=== PATIENT | female | born 1950 | race Caucasian/White ===

== ENCOUNTER 2019-02-15 08:13 | Emergency (ER) | payer MEDICARE, OTHER ==
[~2019-02-15] VITALS: Ht 158.5 cm; Wt 65.8 kg
[~2019-02-15 08:13] MED LIST: ASPI-482 PO; CARV3.1210 PO; CLOB15CR TP; DIAZEPAM10 MG PO; GABA300C18 PO; LEVO50TA5 PO; LISI-334 PO; OXAZ15CA3 PO; TIZA4TAB PO
[2019-02-15 08:28] VITALS: BP 140/83
[2019-02-15] MEDS ORDERED: FAMOTIDINE 20 MG/2 ML VIAL IVP ONE (09:15)
[2019-02-15 09:20] LABS: BASO % 0 % (0-3); EOS % 1 % (0-3); HEMATOCRIT 38.8 % (36.0-47.0); HEMOGLOBIN 13.6 g/dL (12.0-15.5); LYMPH # 0.7 x10^3/uL (1.0-4.8); LYMPH % 18 % (24-48); MEAN CORPUSCULAR HEMOGLOBIN 33 pg (25-35); MEAN CORPUSCULAR HGB CONC 35 g/dL (31-37); MEAN CORPUSCULAR VOLUME 94 fL (79-100); MONO # 0.3 x10^3/uL (0.0-1.1); MONO % 8 % (0-9); NEUT # 2.8 x10^3uL (1.8-7.7); NEUT % 73 % (31-73); PLATELET COUNT 223 x10^3/uL (140-400); RED BLOOD COUNT 4.11 x10^6/uL (3.50-5.40); RED CELL DISTRIBUTION WIDTH 13.5 % (11.5-14.5); WHITE BLOOD COUNT 3.8 x10^3/uL (4.0-11.0)
--- NOTE | 2019-02-15 09:21 | PHYS DOC ---
Past Medical History Past Medical History: Anxiety, GERD, Hypertension, Hypothyroid Additional Past Medical Histor: prolasped bladder, pelvic floor dysfunction Past Surgical History: Hysterectomy, Other Additional Past Surgical Histo: thumb surgery Alcohol Use: None Drug Use: None Adult General Chief Complaint Chief Complaint: HEADACHE HPI HPI Patient is a 68 year old female who presents with complaining of headache. Patient complaining of left temporal headache for the last 4 days as a constant aching pain and rated her pain 1-2/10. Patient also complaining of substernal indigestion feeling for the last 4 days as an intermittent pain that getting better with [id number] antacid medication. Patient states she was on long time diazepam . Patient states she stopped diazepam 1 month ago and had withdrawal symptom. Patient states her primary care physician tapering her medication but she doesn't follow the direction correctly and didn't take any medication for the last 1 week and thinks maybe she had withdrawal symptom again. Patient states she had 4 mg of diazepam yesterday. Patient denies fever and chills, focal neuro deficit, nausea or vomiting, blurred vision, neck pain. Review of Systems Review of Systems Constitutional: Denies fever or chills [] Eyes: Denies change in visual acuity, redness, or eye pain [] HENT: Denies nasal congestion or sore throat [] Respiratory: Denies cough or shortness of breath [] Cardiovascular: No additional information not addressed in HPI [] GI: Denies abdominal pain, nausea, vomiting, bloody stools or diarrhea [] : Denies dysuria or hematuria [] Musculoskeletal: Denies back pain or joint pain [] Integument: Denies rash or skin lesions [] Neurologic: Denies headache, focal weakness or sensory changes [] Endocrine: Denies polyuria or polydipsia [] All other systems were reviewed and found to be within normal limits, except as documented in this note. Current Medications Current Medications Current Medications Medications (Trade) Dose Ordered Sig/Corbin Start Time Stop Time Status Last Admin Dose Admin Famotidine (Pepcid Vial) 20 mg 1X ONCE 02/15/19 09:15 02/15/19 09:17 DC 02/15/19 09:23 20 MG Ketorolac Tromethamine (Toradol 30mg Vial) 30 mg 1X ONCE 02/15/19 10:00 02/15/19 10:01 DC Allergies Allergies Allergies Coded Allergies Type Severity Reaction Last Updated Verified hydrochlorothiazide Allergy Intermediate 06/23/14 No Physical Exam Physical Exam Constitutional: Well nourished, mild distress, non-toxic appearance. [] HENT: Normocephalic, atraumatic, bilateral external ears normal, oropharynx elva st, no oral exudates, nose normal. [] Eyes: PERRLA, EOMI, conjunctiva normal, no discharge. [] Neck: Normal range of motion, no tenderness, supple, no stridor, no meningeal sign. [] Cardiovascular:Heart rate regular rhythm, no murmur [] Lungs & Thorax: Bilateral breath sounds clear to auscultation [] Abdomen: Bowel sounds normal, soft, no tenderness, no masses, no pulsatile masses. [] Skin: Warm, dry, no erythema, no rash. [] Back: No tenderness, no CVA tenderness. [] Extremities: No tenderness, no cyanosis, no clubbing, ROM intact, no edema. [] Neurologic: Alert and oriented X 3, normal motor function, normal sensory function, no focal deficits noted. [] Psychologic: Affect anxious, judgement normal, mood normal. [] Current Patient Data Vital Signs Vital Signs Date Time Temp Pulse Resp B/P (MAP) Pulse Ox O2 Delivery O2 Flow Rate FiO2 02/15/19 08:28 98.3 85 16 140/83 (102) 100 Room Air 98.3 Lab Values Laboratory Tests Test 02/15/19 08:50 White Blood Count 3.8 x10^3/uL (4.0-11.0) L Red Blood Count 4.11 x10^6/uL (3.50-5.40) Hemoglobin 13.6 g/dL (12.0-15.5) Hematocrit 38.8 % (36.0-47.0) Mean Corpuscular Volume 94 fL (79-100) Mean Corpuscular Hemoglobin 33 pg (25-35) Mean Corpuscular Hemoglobin Concent 35 g/dL (31-37) Red Cell Distribution Width 13.5 % (11.5-14.5) Platelet Count 223 x10^3/uL (140-400) Neutrophils (%) (Auto) 73 % (31-73) Lymphocytes (%) (Auto) 18 % (24-48) L Monocytes (%) (Auto) 8 % (0-9) Eosinophils (%) (Auto) 1 % (0-3) Basophils (%) (Auto) 0 % (0-3) Neutrophils # (Auto) 2.8 x10^3uL (1.8-7.7) Lymphocytes # (Auto) 0.7 x10^3/uL (1.0-4.8) L Monocytes # (Auto) 0.3 x10^3/uL (0.0-1.1) Eosinophils # (Auto) 0.0 x10^3/uL (0.0-0.7) Basophils # (Auto) 0.0 x10^3/uL (0.0-0.2) Sodium Level 136 mmol/L (136-145) Potassium Level 4.2 mmol/L (3.5-5.1) Chloride Level 101 mmol/L (98-107) Carbon Dioxide Level 26 mmol/L (21-32) Anion Gap 9 (6-14) Blood Urea Nitrogen 10 mg/dL (7-20) Creatinine 0.7 mg/dL (0.6-1.0) Estimated GFR (Cockcroft-Gault) 82.7 BUN/Creatinine Ratio 14 (6-20) Glucose Level 114 mg/dL (70-99) H Calcium Level 9.2 mg/dL (8.5-10.1) Total Bilirubin 0.6 mg/dL (0.2-1.0) Aspartate Amino Transferase (AST) 42 U/L (15-37) H Alanine Aminotransferase (ALT) 35 U/L (14-59) Alkaline Phosphatase 51 U/L (46-116) Creatine Kinase 892 U/L (26-192) H Troponin I Quantitative < 0.017 ng/mL (0.000-0.055) Total Protein 6.4 g/dL (6.4-8.2) Albumin 3.6 g/dL (3.4-5.0) Albumin/Globulin Ratio 1.3 (1.0-1.7) Laboratory Tests 02/15/19 08:50 Laboratory Tests 02/15/19 08:50 EKG EKG EKG interpreted by me. EKG at 0848 showed normal sinus rhythm at rate of 64, normal [place] and QT intervals, no acute ST-T wave abnormalities. Radiology/Procedures Radiology/Procedures [][facility] [address] [place] [address] IMAGING REPORT Signed PATIENT: BRANDI BANGURA ACCOUNT: [id number] : 1950 LOCATION: ER AGE: 68 SEX: F EXAM STATUS: REG ER ORD. PHYSICIAN: RENZO FAULKNER MD REASON: Dizziness and headache x 4 days PROCEDURE: CT HEAD WO CONTRAST CT HEAD WO CONTRAST History: Dizziness and headache for 4 days Comparison: February 22, 2012 Technique: Noncontrast CT imaging was performed of the head. Exposure: One or more of the following individualized dose reduction techniques were utilized for this examination: 1. Automated exposure control 2. Adjustment of the mA and/or kV according to patient size 3. Use of iterative reconstruction technique. Findings: Ventricular size is proportionate to the sulcal spaces. There is mild generalized supratentorial involutional change. There is ill-defined low-density greatest of the bilateral parietal white matter at least in part present previously. There is no new intra-axial mass effect, midline shift, extra axial fluid collection. No convincing acute intracranial hemorrhage is identified. Visualized paranasal sinuses and mastoid air cells are aerated. There is right jossie bullosa. Impression: 1. No acute intracranial abnormality is identified by CT. There is mild supratentorial involutional change. Ill-defined low-density of the supratentorial parenchyma greatest of the parietal lobes is nonspecific, most commonly due to chronic microvascular ischemic disease in a patient this age. Electronically signed by: Shadi Hoang MD (02/15/2019 9:31 AM) [facility] DICTATED and SIGNED BY: SHADI HOANG MD DATE: 02/15/19 0931 Course & Med Decision Making Course & Med Decision Making Pertinent Labs and Imaging studies reviewed. (See chart for details) Evaluation of patient in ER showed 68-year-old female patient with complaining of mild headache and not feeling right after stopping diazepam suddenly. Patient had unremarkable exam and EKG. Labs showed mild elevation of CPK. CT head was u nremarkable. Patient treated with Pepcid and Toradol and felt better. Patient was advised to continue ibuprofen. Plan to give prescription for Zantac. Patient was advised to take diazepam as well advised and increase fluid intake. I've spoken with the patient and/or caregivers. I've explained the patient's condition, diagnosis and treatment plan based on information available to me at this time. I've answered the patient's and/or caregivers questions and addressed any concerns. The patient and/or caregivers have a good understanding the patient's diagnosis, condition and treatment plan as can be expected at this point. Vital signs have been stabilized. The patient's condition is stable for discharge from the emergency department. The patient will pursue further outpatient evaluation with her primary care provider or other designated consulting physician as outlined in the discharge instructions. Patient and/or caregivers are agreeable to this plan of care and follow-up instructions have been explained in detail. The patient and/or caregivers have received these instructions in written format and expressed understanding of these discharge instructions. The patient and her caregivers are aware that if any significant change in condition or worsening of symptoms should prompt him to immediately return to this of the closest emergency department. If an emergent department is not readily available I would encourage him to call 911. Dragon Disclaimer Dragon Disclaimer This electronic medical record was generated, in whole or in part, using a voice recognition dictation system. Departure Departure Impression: Primary Impression: Headache Additional Impressions: Withdrawal from diazepam GERD (gastroesophageal reflux disease) Disposition: 01 HOME, SELF-CARE (at 1008) Condition: IMPROVED Referrals: MANUEL LEONARD MD (PCP) Patient Instructions: Benzodiazepine Withdrawal, Diet for Gastroesophageal Reflux Disease, Adult Additional Instructions: Drink plenty of liquids Follow-up with your primary care physician in 3-5 days Return to ER if not getting better Take your diazepam as advised Scripts Ranitidine Hcl (ZANTAC) 150 Mg Tablet 1 TAB PO BID, #14 TAB Prov: RENZO FAULKNER MD 02/15/19 Problem Qualifiers Primary Impression: Headache Headache type: unspecified Headache chronicity pattern: unspecified pattern Intractability: not intractable Qualified Codes: R51 - Headache Additional Impressions: Withdrawal from diazepam Complication of substance-induced condition: uncomplicated Qualified Codes: F13.230 - Sedative, hypnotic or anxiolytic dependence with withdrawal, uncomplicated GERD (gastroesophageal reflux disease) Esophagitis presence: esophagitis presence not specified Qualified Codes: K21.9 - Gastro-esophageal reflux disease without esophagitis RENZO FAULKNER MD February 15, 2019 09:21
--- NOTE | 2019-02-15 09:33 | RAD ---
CT HEAD WO CONTRAST History: Dizziness and headache for 4 days Comparison: February 22, 2012 Technique: Noncontrast CT imaging was performed of the head. Exposure: One or more of the following individualized dose reduction techniques were utilized for this examination: 1. Automated exposure control 2. Adjustment of the mA and/or kV according to patient size 3. Use of iterative reconstruction technique. Findings: Ventricular size is proportionate to the sulcal spaces. There is mild generalized supratentorial involutional change. There is ill-defined low-density greatest of the bilateral parietal white matter at least in part present previously. There is no new intra-axial mass effect, midline shift, extra axial fluid collection. No convincing acute intracranial hemorrhage is identified. Visualized paranasal sinuses and mastoid air cells are aerated. There is right jossie bullosa. Impression: 1. No acute intracranial abnormality is identified by CT. There is mild supratentorial involutional change. Ill-defined low-density of the supratentorial parenchyma greatest of the parietal lobes is nonspecific, most commonly due to chronic microvascular ischemic disease in a patient this age. Electronically signed by: Zachery Hoang MD (02/15/2019 9:31 AM) [facility]
[2019-02-15 09:34] LABS: CALCIUM 9.2 mg/dL (8.5-10.1); CREATININE 0.7 mg/dL (0.6-1.0); GFR 82.7; POTASSIUM 4.2 mmol/L (3.5-5.1)
[2019-02-15 09:40] LABS: ALBUMIN 3.6 g/dL (3.4-5.0); ALBUMIN/GLOBULIN RATIO 1.3 (1.0-1.7); TOTAL BILIRUBIN 0.6 mg/dL (0.2-1.0); TOTAL PROTEIN 6.4 g/dL (6.4-8.2)
[2019-02-15] MEDS ORDERED: KETOROLAC 30 MG/ML VIAL. IV ONE (10:00)
[2019-02-15] MEDS ORDERED: RANI-376 PO (10:12)
--- NOTE | 2019-02-15 11:29 | EKG ---
[facility] [address] [place] [address] Test Date: 2019-02-15 Test Time: 08:48:18 Pat Name: BRANDI BANGURA Department: Room: Gender: F Geology Technician: : 1950 Requested By: RENZO FAULKNER Order Number: [id number] Reading MD: Measurements Intervals Ranger Rate: 63 P: 32 [place]: 210 QRS: 24 QRSD: 74 T: 33 QT: 388 QTc: 400 Interpretive Statements SINUS RHYTHM NORMAL ECG No previous ECG available for comparison
== END 2019-02-15 10:40 | disposition home or self-care (01) ==
LOC: ER 08:13
DX: R51 Headache (principal); F13.239 Sedative, hypnotic or anxiolytic dependence with withdrawal, unspecified; K21.9 Gastro-esophageal reflux disease without esophagitis; I10 Essential (primary) hypertension; E03.9 Hypothyroidism, unspecified; Z88.8 Allergy status to other drugs, medicaments and biological substances
CPT/HCPCS: 36415; 70450; 80053; 82550; 84484; 85025; 93005; 96374; 96375; 99285; J1885; J3490

== ENCOUNTER → 2020-12-29 | Outpatient (CLI) | payer MEDICARE ==
[2020-12-18 21:10] VITALS: BP 166/84
[~2020-12-29] MED LIST changes: +BUTA1TAB23 PO; -LISI-334 PO; +LISI20TA18 PO; +RANI-376 PO; -TIZA4TAB PO; +TIZA4TAB2 PO
--- NOTE | 2020-12-30 08:39 | KCIC ---
CT THORAX WO INDICATION: Lung nodule RUL on recent Xray. Recent xray at [facility]. Hx. Schulzid in June 2020. COMPARISON STUDY: Radiograph 12/18/2020. TECHNIQUE: Unenhanced axial images were obtained through the lungs and upper abdomen. Coronal and sa gittal multiplanar reconstructions were also obtained. PQRS compliance statement: One or more of the following individualized dose reduction techniques were utilized for this examinat ion: 1. Automated exposure control 2. Adjustment of the mA and/or kV according to patient size 3. Use of iterative reconstruction technique FINDINGS: Lungs and Airways: No pulmonary mass or consolidation. Calcified pulmonary granulomas. Bibasilar depe ndent and subsegmental atelectasis. Normal central airways. Pleura: The pleural spaces are normal. Heart and Mediastinum: The visualized thyroid gland is normal in size and attenuation. No axillary or supraclavicular lymphadenopathy. No mediastinal, hilar or retrocrural lymphadenopathy. Calcified hil ar lymph nodes consistent with remote granulomatous disease. Normal cardiac size. No pericardial effu svetlana. Coronary artery atherosclerotic disease. Atherosclerosis of the thoracic aorta. Abdomen: Left renal nonobstructive 2 mm calculus. Bones and Soft Tissues: The visualized skeletal structures and soft tissues of the chest wall are wit hin normal limits. IMPRESSION: No pulmonary mass or consolidation. No thoracic lymphadenopathy. Nodular opacity on the prior radiograph was likely artifactual due to superimposed structures, possib ly prominent first rib costochondral calcification. Nonobstructive left renal 2 mm calculus. Electronically signed by: Zachery Garcia MD (12/30/2020 8:36 AM) [id number]
== END ==
LOC: KCIC CT 13:20
PROVIDERS: ATTEND Family Medicine
DX: J98.11 Atelectasis (principal); J84.10 Pulmonary fibrosis, unspecified; N20.0 Calculus of kidney; I70.0 Atherosclerosis of aorta
CPT/HCPCS: 71250

== ENCOUNTER → 2021-01-24 | Outpatient (CLI) | payer MEDICARE ==
[2020-12-18 21:10] VITALS: BP 166/84
--- NOTE | 2021-01-24 16:22 | RAD ---
MR#: [id number] Date of Study: 01/24/2021 Ordering Physician: MARY JO JEAN BAPTISTE, Referring Physician: MARY JO JEAN BAPTISTE, Tech: Maryuri Mcfadden, RDMS, RVT, RTR; Marleen Yanez APPROVED REPORT Patient Location: OUT-PATIENT Indications Uncontrolled HTN Renal Artery Doppler Right Renal Artery Left Renal Arter y Proximal 161.0/39.0 cm/secProximal 92.0/27.0 cm/sec Mid 84.0/26.0 cm/secMid 51.0/15.0 cm/sec Distal 104.0/27.0 cm/secDistal 79.0/29.0 cm/sec Renal/Aorta Ratio 1.67Renal/Aorta Ratio 0.95 Prox. Resistive Index 0.76Prox. Resistive Index 0.71 Mid Resistive Index 0.69Mid Resistive Index 0.71 Distal Resistive Index 0.74Distal Resistive Index 0.63 Rt. Segmental A. 25.0/9.0 cm/secLt. Segmental A. 19.0/9.0 cm/sec Renal Measurements RightLeft Kidney Rabxsi15.5 cm cmKidney Kurhtk18.4 cm cm Right Additional FindingsLeft Additional Findings Aortic Doppler VelocityWaveform Mid. Aorta 96.0 cm/sec Findings Limited grayscale images of the bilateral kidneys are grossly unremarkable. Normal proximal, mid and distal renal artery velocities are noted. Normal renal to aortic ratios. Normal aortic velocities noted. B no significant renal artery stenosis identified. Critical Notification Critical Value: No <Conclusion> 1. No significant renal artery stenosis noted. Signed by : Matthew Boyer, Electronically Approved : 01/24/2021 16:21:49
--- NOTE | 2021-01-24 17:27 | CARD ---
MR#: [id number] Date of Study: 01/24/2021 Ordering Physician: MARY JO BARBOSA, Referring Physician: MARY JO BARBOSA, Tech: Maryuri Villar, [facility] [place] APPROVED REPORT EXAM: Two-dimensional and M-mode echocardiogram with Doppler and color Doppler. Other Information Quality : GoodHR: 63bpm INDICATION Dyspnea RISK FACTORS Hypertension 2D DIMENSIONS RVDd3.6 (2.9-3.5cm)Left Atrium(2D)2.7 (1.6-4.0cm) IVSd0.9 (0.7-1.1cm)Aortic Root(2D)3.3 (2.0-3.7cm) LVDd5.4 (3.9-5.9cm)LVOT Diameter1.9 (1.8-2.4cm) PWd0.8 (0.7-1.1cm)LVDs2.6 (2.5-4.0cm) FS (%) 52.2 %SV117.2 ml LVEF(%)56.9 (>50%) Aortic Valve AoV Peak Dilan.121.8cm/sAoV VTI21.9cm AO Peak GR.5.9mmHgLVOT Peak Dilan.110.0cm/s LVOT VTI 23.42cmAO Mean GR.3mmHg SPARKLE (VMAX)2.91ch2MKA (VTI)3.00cm2 Mitral Valve MV E Brhnasma41.8cm/sMV DECEL [id number] MV A Ufugqcoh97.3cm/sMV [id number] E/A Ratio0.9MVA (PHT)3.33cm2 TDI E/Lateral E'8.1E/Medial E'8.9 Pulmonary Valve PV Peak Kmfthyfl38.7cm/sPV Peak Grad.3mmHg Tricuspid Valve TR P. [id number]/sRAP [id number] TR Peak Gr.38klFfDNMX01uaJu Pulmonary Vein S1 Psizlfkf08.2cm/sD2 Vitkakio32.1cm/s PVa [id number] LEFT VENTRICLE The Left Ventricle is borderline dilated. There is normal left ventricular wall thickness. The left v entricular systolic function is normal and the ejection fraction is within normal range. The Ejection Fraction is 50-55%. There is normal LV segmental wall motion. Transmitral Doppler flow pattern is Gr gm I-abnormal relaxation pattern. RIGHT VENTRICLE The right ventricle is normal size. There is normal right ventricular wall thickness. The right ventr icular systolic function is normal. ATRIA The left atrium size is normal. The right atrium size is normal. The interatrial septum is intact wit h no evidence for an atrial septal defect or patent foramen ovale as noted on 2-D or Doppler imaging. AORTIC VALVE The aortic valve is normal in structure and function. Doppler and Color Flow revealed no significant aortic regurgitation. There is no significant aortic valvular stenosis. Calculated aortic valve area is 3.13 cm2 with maximum pressure gradient of 7 mmHg and mean pressure gradient of 3 mmHg. MITRAL VALVE The mitral valve is normal in structure and function. There is no evidence of mitral valve prolapse. There is no mitral valve stenosis. Doppler and Color-flow revealed trace mitral regurgitation. TRICUSPID VALVE The tricuspid valve is normal in structure and function. Doppler and Color Flow revealed trace tricus pid regurgitation with an estimated PAP of 30 mmHg. There is no tricuspid valve stenosis. PULMONIC VALVE The pulmonic valve is not well visualized. Doppler and Color Flow revealed trace pulmonic valvular re gurgitation. GREAT VESSELS The aortic root is normal in size. The IVC is normal in size and collapses >50% with inspiration. PERICARDIAL EFFUSION There is no evidence of significant pericardial effusion. Critical Notification Critical Value: No <Conclusion> The Left Ventricle is borderline dilated. The left ventricular systolic function is normal and the ejection fraction is within normal range. The Ejection Fraction is 50-55%. There is normal LV segmental wall motion. Doppler and Color Flow revealed no significant aortic regurgitation. There is no significant aortic valvular stenosis. Doppler and Color-flow revealed trace mitral regurgitation. Doppler and Color Flow revealed trace tricuspid regurgitation with an estimated PAP of 30 mmHg. Signed by : Mary Jo Barbosa MD Electronically Approved : 01/24/2021 17:26:39
== END ==
LOC: ECHO 08:32
PROVIDERS: ATTEND Internal Medicine Cardiovascular Disease
DX: I10 Essential (primary) hypertension (principal)
CPT/HCPCS: 76770; 93306

== ENCOUNTER 2021-04-13 08:27 | Emergency (ER) | payer MEDICARE ==
[~2021-04-13] VITALS: Ht 170.2 cm; Wt 69.6 kg
--- NOTE | 2021-04-13 08:55 | PHYS DOC ---
Past Medical History Past Medical History: Anxiety, Hypertension, Hypothyroid Additional Past Medical Histor: COVID 07/12 Past Surgical History: Other Additional Past Surgical Histo: RIGHT HIP PLACEMENT 10/11/20 Smoking Status: Never Smoker Alcohol Use: None Drug Use: None General Adult EDM: Chief Complaint: HEADACHE HPI: HPI: 71-year-old presents with a headache. She describes her headache as not sudden in onset. It has been present for multiple weeks. She does not have a history of headaches the only other headache she had was when she had Covid but she recently was tested for Covid which was negative. The pain is nonradiating. She denies nuchal rigidity. She denies any facial drooping numbness weakness or tingling of her arms. Review of systems negative for chest pain shortness of breath vomiting fevers chills. Positive for a sour taste in her mouth in the mornings. All other review of systems negative. Heart Score: C/O Chest Pain: No Risk Factors: Risk Factors: DM, Current or recent (<one month) smoker, HTN, HLP, family history of CAD, obesity. Risk Scores: Score 0 - 3: 2.5% MACE over next 6 weeks - Discharge Home Score 4 - 6: 20.3% MACE over next 6 weeks - Admit for Clinical Observation Score 7 - 10: 72.7% MACE over next 6 weeks - Early Invasive Strategies Allergies: Allergies: Allergies Coded Allergies Type Severity Reaction Last Updated Verified hydrochlorothiazide Allergy Intermediate 06/23/14 No Physical Exam: PE: Constitutional: Well developed, well nourished, no acute distress, non-toxic appearance. [] HENT: Normocephalic, atraumatic, bilateral external ears normal, oropharynx moist, no oral exudates, nose normal. [] Eyes: PERRLA, EOMI, conjunctiva normal, no discharge. [] Neck: Normal range of motion, no tenderness, supple, no stridor. [] Cardiovascular:Heart rate regular rhythm, no murmur [] Lungs & Thorax: Bilateral breath sounds clear to auscultation [] Abdomen: Bowel sounds normal, soft, no tenderness, no masses, no pulsatile masses. [] Skin: Warm, dry, no erythema, no rash. [] Back: No tenderness, no CVA tenderness. [] Extremities: No tenderness, no cyanosis, no clubbing, ROM intact, no edema. [] Neurologic: Mental status: Awake oriented and alert x3 Cranial nerves: Extraocular movements intact, eyebrows courtney bilaterally, smile symmetric, uvula elevation nl, shoulder shrug intact bilaterally, tongue protrusion normal Clear speech. Normal [id number]. Sensation: equal and normal in all extremities Strength: 5/5 in upper and lower extremities bilaterally Psychologic: Affect normal, judgement normal, mood normal. [] EKG: EKG: [] Radiology/Procedures: Radiology/Procedures: [] Course & Med Decision Making: Course & Med Decision Making Pertinent Labs and Imaging studies reviewed. (See chart for details) [] Dragon Disclaimer: Dragon Disclaimer: This electronic medical record was generated, in whole or in part, using a voice recognition dictation system. Departure Departure Impression: Primary Impression: Headache Disposition: HOME / SELF CARE / HOMELESS Condition: STABLE Referrals: MANUEL LEONARD MD (PCP) JEANNETTE JAY MD NEUROLOGY Patient Instructions: General Headache Without Cause Additional Instructions: EMERGENCY DEPARTMENT GENERAL DISCHARGE INSTRUCTIONS Follow-up with your primary physician in 1 to 2 days. And follow-up with neurology in the next 5 to 7 days. Return to the emergency department if you have any new or concerning findings. Thank you for coming to [facility] Emergency Department (ED) today and trusting us with you care. We trust that you had a positive experienc e in our Emergency Department. If you wish to speak to the department management, you may call the Director at [phone]. Follow up is important in emergency/acute care visits. This condition should be evaluated by your primary care physician and any necessary consulting services for continued management within a few days (1-2) after discharge. Follow-up with neurology within the next 5 to 7 days. Return to the emergency department if you have any new or concerning symptoms including but not limited to fever, chills, nausea, vomiting, intractable pain, any new rashes, chest pain, shortness of breath, uncontrolled bleeding, difficulty breathing, and/or vision loss. 1. Do you have a private Doctor? If you do not have a private doctor, please ask for a resource list of physicians or clinics that may be able to assist you with follow up care. 2. If a lab test or culture has been done and does not come back immediately, your results will be reviewed and you will be notified if you need a change in treatment. 3. Your care today has been supervised by a physician who is specially trained in emergency care. Many problems require more than one evaluation for a complete diagnosis and treatment. We recommend that you schedule your follow up appointment as recommended to ensure complete treatment of you illness or injury. If you are unable to obtain follow up care and continue to have a problem, or if your condition worsens, we recommend that you return to the ED. 4. We are not able to safely determine your condition over the phone nor are we able to give sound medical advice over the phone. For these safety reasons, if you call for medical advice we will ask you to come to the ED for further evaluation. IF YOUR SYMPTOMS WORSEN OR NEW SYMPTOMS DEVELOP, OR YOU HAVE CONCERNS ABOUT YOUR CONDITION; OR IF YOUR CONDITION WORSENS WHILE YOU ARE WAITING FOR YOUR FOLLOW UP APPOINTMENT; EITHER CONTACT YOUR PRIMARY CARE DOCTOR, THE PHYSICIAN WHOSE NAME AND NUMBER YOU WERE GIVEN, OR RETURN TO THE ED IMMEDIATELY. GABRIELLE CHASE MD Apr 13, 2021 08:55
[2021-04-13] MEDS ORDERED: ACETAMINOPHEN 325 MG TABLET. PO ONE (09:00)
--- NOTE | 2021-04-13 09:18 | RAD ---
PQRS Compliance Statement: One or more of the following individualized dose reduction techniques were utilized for this examinat ion: 1. Automated exposure control 2. Adjustment of the mA and/or kV according to patient size 3. Use of iterative reconstruction technique CT head without contrast 04/13/2021 8:59 AM INDICATION: Headache COMPARISON: 02/15/2019 CT head TECHNIQUE: Multiple axial CT images of the head were obtained from skull base through the vertex with out intravenous contrast. FINDINGS: Head: Ventricles, sulci and basal cisterns are prominent compatible with mild to moderate generalized cereb ral volume loss. Low-attenuation in the periventricular white matter is suggestive of chronic small v essel ischemic changes. There is no hydrocephalus. Juarez-white matter differentiation is normal. There is no acute intracranial hemorrhage. There is no mass, mass effect or midline shift. Posterior fossa is normal in appearance. Visualized portions of the orbits are normal. Paranasal sinuses are well aerated. Mastoid air cells a re well aerated. Scalp and calvaria are normal. IMPRESSION: No acute intracranial hemorrhage. Mild to moderate generalized cerebral volume loss, not significantly changed. Low-attenuation in the periventricular white matter is suggestive of chronic small vessel ischemic ch anges. Electronically signed by: Selena Umaña MD (04/13/2021 9:16 AM) [id number]
[2021-04-13] MEDS ORDERED: KETOROLAC 15 MG/ML VIAL. IVP ONE (10:00)
[2021-04-13] MEDS ORDERED: KETOROLAC 30 MG/ML VIAL. IM ONE (10:45)
[2021-04-13 10:46] VITALS: BP 137/63
== END 2021-04-13 10:47 | disposition home or self-care (01) ==
LOC: ER 08:27
DX: R51.9 Headache, unspecified (principal); I10 Essential (primary) hypertension; E03.9 Hypothyroidism, unspecified; Z88.8 Allergy status to other drugs, medicaments and biological substances
CPT/HCPCS: 70450; 96372; 99284; J1885

== ENCOUNTER 2021-04-18 03:39 | Observation (INO) | payer MEDICARE ==
[~2021-04-18] VITALS: Ht 160 cm; Wt 69.6 kg
[2021-04-18] MEDS ORDERED: diphenhydrAMINE 50 MG/ML VIAL IVP ONE (07:45)
[2021-04-18] MEDS ORDERED: methylPREDNISolone SOD SUCC PF 125 MG/2 ML VIAL. IV ONE (07:45)
[2021-04-18] MEDS ORDERED: FAMOTIDINE 20 MG/2 ML VIAL IVP ONE (07:45)
[2021-04-18 08:10] LABS: BASO # 0.1 x10^3/uL (0.0-0.2); BASO % 1 % (0-3); EOS % 0 % (0-3); HEMATOCRIT 36.2 % (36.0-47.0); HEMOGLOBIN 12.8 g/dL (12.0-15.5); LYMPH # 0.7 x10^3/uL (1.0-4.8); LYMPH % 12 % (24-48); MEAN CORPUSCULAR HEMOGLOBIN 33 pg (25-35); MEAN CORPUSCULAR HGB CONC 35 g/dL (31-37); MEAN CORPUSCULAR VOLUME 93 fL (79-100); MONO # 0.4 x10^3/uL (0.0-1.1); MONO % 6 % (0-9); NEUT # 4.7 x10^3/uL (1.8-7.7); NEUT % 80 % (31-73); PLATELET COUNT 235 x10^3/uL (140-400); RED BLOOD COUNT 3.92 x10^6/uL (3.50-5.40); RED CELL DISTRIBUTION WIDTH 13.4 % (11.5-14.5); WHITE BLOOD COUNT 5.8 x10^3/uL (4.0-11.0)
[2021-04-18 08:27] LABS: CALCIUM 8.7 mg/dL (8.5-10.1); CREATININE 0.6 mg/dL (0.6-1.0); POTASSIUM 3.4 mmol/L (3.5-5.1)
[2021-04-18 08:28] LABS: BARBITURATES NEG (NEG); BENZODIAZEPINES NEG (NEG); CANNABINOIDS NEG (NEG); COCAINE NEG (NEG); METHADONE NEG (NEG); OPIATES NEG (NEG); PHENCYCLIDINE NEG (NEG)
[2021-04-18 08:29] LABS: ALBUMIN 4.2 g/dL (3.4-5.0); ALBUMIN/GLOBULIN RATIO 1.3 (1.0-1.7); TOTAL BILIRUBIN 0.3 mg/dL (0.2-1.0); TOTAL PROTEIN 7.5 g/dL (6.4-8.2)
[2021-04-18 08:30] LABS: AMPHETAMINE/METHAMPHETAMINE NEG (NEG)
--- NOTE | 2021-04-18 09:09 | PHYS DOC ---
Past Medical History Past Medical History: Anxiety, Hypertension, Hypothyroid Additional Past Medical Histor: COVID 07/12, HIATIAL & UMBILICAL HERNIA Past Surgical History: Hip Replacement, Hysterectomy, Other Additional Past Surgical Histo: CARPAL TUNNEL,VEIN STRIPPING Smoking Status: Never Smoker Alcohol Use: None Drug Use: None General Adult EDM: Chief Complaint: OTHER COMPLAINTS HPI: HPI: Patient is a 71 female who present to ER with hot flash and tingling sensation. Patient felt like she had an allergic reaction to her medication. Patient take amlodipine and CBD oil for anxiety. Patient says she had used this substance in the past without any problem. Patient said her blood pressure was elevated at home, she took clonidine for it, continue to have hot flash sensation and tingling sensation all over her body so she came in for evaluation. Patient denies any chest pain, no cough, no fever. Patient denies any headache, no blurred vision, no trouble speaking. Patient denies any focal weakness or numbness anywhere. Review of Systems: Review of Systems: Constitutional: Denies fever or chills. [] Eyes: Denies change in visual acuity. [] HENT: Denies nasal congestion or sore throat. [] Respiratory: Denies cough or shortness of breath. [] Cardiovascular: Denies chest pain or edema. [] GI: Denies abdominal pain, nausea, vomiting, bloody stools or diarrhea. [] : Denies dysuria. [] Musculoskeletal: Denies back pain or joint pain. [] Integument: Denies rash. [] Neurologic: Denies headache, focal weakness or sensory changes. [] Endocrine: Denies polyuria or polydipsia. [] Lymphatic: Denies swollen glands. [] Psychiatric: Denies depression or anxiety. [] Heart Score: C/O Chest Pain: N/A Risk Factors: Risk Factors: DM, Current or recent (<one month) smoker, HTN, HLP, family history of CAD, obesity. Risk Scores: Score 0 - 3: 2.5% MACE over next 6 weeks - Discharge Home Score 4 - 6: 20.3% MACE over next 6 weeks - Admit for Clinical Observation Score 7 - 10: 72.7% MACE over next 6 weeks - Early Invasive Strategies Current Medications: Current Medications Medications (Trade) Dose Ordered Sig/Corbin Start Time Stop Time Status Last Admin Dose Admin Diphenhydramine HCl (Benadryl) 25 mg 1X ONCE 04/18/21 07:45 04/18/21 07:46 DC 04/18/21 08:30 25 MG Famotidine (Pepcid Vial) 20 mg 1X ONCE 04/18/21 07:45 04/18/21 07:46 DC 04/18/21 08:30 20 MG Methylprednisolone Sodium Succinate (SOLU-Medrol 125MG VIAL) 125 mg 1X ONCE 04/18/21 07:45 04/18/21 07:46 DC 04/18/21 08:31 125 MG Allergies: Allergies: Allergies Coded Allergies Type Severity Reaction Last Updated Verified hydrochlorothiazide Allergy Intermediate 06/23/14 No Physical Exam: PE: Constitutional: Well developed, well nourished, no acute distress, non-toxic appearance. [] HENT: Normocephalic, atraumatic, bilateral external ears normal, oropharynx moist, no oral exudates, nose normal. [] Eyes: PERRLA, EOMI, conjunctiva normal, no discharge. [] Neck: Normal range of motion, no tenderness, supple, no stridor. [] Cardiovascular:Heart rate regular rhythm, no murmur [] Lungs & Thorax: Bilateral breath sounds clear to auscultation [] Abdomen: Bowel sounds normal, soft, no tenderness, no masses, no pulsatile masses. [] Skin: Warm, dry, no erythema, no rash. [] Back: No tenderness, no CVA tenderness. [] Extremities: No tenderness, no cyanosis, no clubbing, ROM intact, no edema. [] Neurologic: Alert and oriented X 3, normal motor function, normal sensory function, no focal deficits noted. [] Psychologic: Affect normal, judgement normal, mood normal. [] Current Patient Data: Labs: Laboratory Tests Test 04/18/21 07:55 White Blood Count 5.8 x10^3/uL (4.0-11.0) Red Blood Count 3.92 x10^6/uL (3.50-5.40) Hemoglobin 12.8 g/dL (12.0-15.5) Hematocrit 36.2 % (36.0-47.0) Mean Corpuscular Volume 93 fL (79-100) Mean Corpuscular Hemoglobin 33 pg (25-35) Mean Corpuscular Hemoglobin Concent 35 g/dL (31-37) Red Cell Distribution Width 13.4 % (11.5-14.5) Platelet Count 235 x10^3/uL (140-400) Neutrophils (%) (Auto) 80 % (31-73) H Lymphocytes (%) (Auto) 12 % (24-48) L Monocytes (%) (Auto) 6 % (0-9) Eosinophils (%) (Auto) 0 % (0-3) Basophils (%) (Auto) 1 % (0-3) Neutrophils # (Auto) 4.7 x10^3/uL (1.8-7.7) Lymphocytes # (Auto) 0.7 x10^3/uL (1.0-4.8) L Monocytes # (Auto) 0.4 x10^3/uL (0.0-1.1) Eosinophils # (Auto) 0.0 x10^3/uL (0.0-0.7) Basophils # (Auto) 0.1 x10^3/uL (0.0-0.2) Sodium Level 124 mmol/L (136-145) L Potassium Level 3.4 mmol/L (3.5-5.1) L Chloride Level 90 mmol/L (98-107) L Carbon Dioxide Level 24 mmol/L (21-32) Anion Gap 10 (6-14) Blood Urea Nitrogen 7 mg/dL (7-20) Creatinine 0.6 mg/dL (0.6-1.0) Estimated GFR (Cockcroft-Gault) 98.0 BUN/Creatinine Ratio 12 (6-20) Glucose Level 121 mg/dL (70-99) H Calcium Level 8.7 mg/dL (8.5-10.1) Magnesium Level 2.0 mg/dL (1.8-2.4) Total Bilirubin 0.3 mg/dL (0.2-1.0) Aspartate Amino Transferase (AST) 15 U/L (15-37) Alanine Aminotransferase (ALT) 21 U/L (14-59) Alkaline Phosphatase 61 U/L (46-116) Troponin I Quantitative < 0.017 ng/mL (0.000-0.055) PT-Vys-O-Type Natriuretic Peptide 821 pg/mL (0-124) H Total Protein 7.5 g/dL (6.4-8.2) Albumin 4.2 g/dL (3.4-5.0) Albumin/Globulin Ratio 1.3 (1.0-1.7) Urine Opiates Screen Neg (NEG) Urine Methadone Screen Neg (NEG) Urine Barbiturates Neg (NEG) Urine Phencyclidine Screen Neg (NEG) Urine Amphetamine/Methamphetamine Neg (NEG) Urine Benzodiazepines Screen Neg (NEG) Urine Cocaine Screen Neg (NEG) Urine Cannabinoids Screen Neg (NEG) Urine Ethyl Alcohol Neg (NEG) Laboratory Tests 04/18/21 07:55 Laboratory Tests 04/18/21 07:55 Vital Signs: Vital Signs Date Time Temp Pulse Resp B/P (MAP) Pulse Ox O2 Delivery O2 Flow Rate FiO2 04/18/21 07:21 98.6 75 16 183/97 (99) 99 Room Air 98.6 EKG: EKG: [] Radiology/Procedures: Radiology/Procedures: [] Course & Med Decision Making: Course & Med Decision Making Pertinent Labs and Imaging studies reviewed. (See chart for details) Patient is a 71 female who present to ER with hot flash and tingling sensation. Patient felt like she had an allergic reaction to her medication. Patient take amlodipine and CBD oil for anxiety. Patient says she had used this substance in the past without any problem. Patient said her blood pressure was elevated at home, she took clonidine for it, continue to have hot flash sensation and tingling sensation all over her body so she came in for evaluation. Patient was found to be low on sodium level, it might explain why she feels this way. Patient was given IV fluid in ER, patient will be admitted for observation. Dragon Disclaimer: Dragon Disclaimer: This electronic medical record was generated, in whole or in part, using a voice recognition dictation system. Departure Departure Impression: Primary Impression: Hyponatremia Additional Impression: Hypertension Disposition: ADMITTED INPATIENT Admitting Physician: GLORIA (Dr. Fernández) Condition: STABLE Referrals: MANUEL LEONARD MD (PCP) PEPITO QUINN DO Apr 18, 2021 09:09
[2021-04-18] MEDS ORDERED: IV NORMAL SALINE 1000ML BAG 1,000 ML IV ONE (09:15)
[2021-04-18 09:17] LABS: COLOR,URINE YELLOW
[2021-04-18 09:18] LABS: BILIRUBIN,URINE NEGATIVE (NEG); CLARITY,URINE CLEAR; NITRITE,URINE NEGATIVE (NEG); PH,URINE 7.5 (<5.0-8.0); PROTEIN,URINE NEGATIVE (NEG-TRACE)
[2021-04-18 09:19] LABS: BACTERIA,URINE 0 /HPF (0-FEW); RBC,URINE OCC /HPF (0-2); WBC,URINE OCC /HPF (0-4)
[2021-04-18] MEDS ORDERED: ONDANSETRON PF 4 MG/2 ML VIAL. IV PRN (10:45)
[2021-04-18] MEDS ORDERED: SENNOSIDES 8.6 MG TABLET PO PRN (13:15)
[2021-04-18] MEDS ORDERED: PROCHLORPERAZINE 10 MG/2 ML VIAL. IV PRN (13:15)
[2021-04-18] MEDS ORDERED: ACETAMINOPHEN 325 MG TABLET. PO PRN (13:15)
[2021-04-18] MEDS ORDERED: ONDANSETRON PF 4 MG/2 ML VIAL. IVP PRN (13:15)
[2021-04-18] MEDS ORDERED: DEXTROSE 50% 25 GM / 50ML DISP.SYRIN. IV PRN (13:15)
[2021-04-18] MEDS ORDERED: DOCUSATE SODIUM 100 MG CAPSULE. PO PRN (13:15)
--- NOTE | 2021-04-18 13:24 | PDOC1 ---
History and Physical Date of Service: DOS: DATE: 04/18/21 TIME: 13:24 Chief Complaint: Chief Complain: weakness History of Present Illness: HPI: 71 yo F with PMHx of COVID infection in 06/2020, hypothyroidism, anxiety who presents with weakness and hot flash sensation Patient take amlodipine and CBD oil for anxiety. Patient says she had used this substance in the past without any problem. Patient said her blood pressure was elevated at home, she took clonidine for it, continue to have hot flash sensation and tingling sensation all over her body so she came in for evaluation. Patient denies any chest pain, no cough, no fever. Patient denies any headache, no blurred vision, no trouble speaking. Patient denies any focal weakness or numbness anywhere. Of note, patient states she has been excessively drinking more water because of her symptoms. In the last 3 weeks she has drank about 6-7 12oz glasses per day. Past Medical/Surgical History: PMH/PSH: Past Medical History: Anxiety, Hypertension, Hypothyroid, COVID 07/12, HIATIAL & UMBILICAL HERNIA Past Surgical History: Hip Replacement, Hysterectomy, CARPAL TUNNEL,VEIN STRIPPING Allergies: Allergies: Coded Allergies: hydrochlorothiazide (Unverified Allergy, Intermediate, 06/23/14) Family History: Family History: Reviewed with no relevant findings Social History: Social History: Smoking Status: Never Smoker Alcohol Use: None Drug Use: None Current Medications: Current Medications Current Medications Diphenhydramine HCl (Benadryl) 25 mg 1X ONCE IVP Last administered on 04/18/21at 08:30; Start 04/18/21 at 07:45; Stop 04/18/21 at 07:46; Status DC Methylprednisolone Sodium Succinate (SOLU-Medrol 125MG VIAL) 125 mg 1X ONCE IV Last administered on 04/18/21at 08:31; Start 04/18/21 at 07:45; Stop 04/18/21 at 07:46; Status DC Famotidine (Pepcid Vial) 20 mg 1X ONCE IVP Last administered on 04/18/21at 08:30; Start 04/18/21 at 07:45; Stop 04/18/21 at 07:46; Status DC Sodium Chloride 1,000 ml @ 1,000 mls/hr 1X ONCE IV Last administered on 7/27/21at 09:37; Start 04/18/21 at 09:15; Stop 04/18/21 at 10:14; Status DC Ondansetron HCl (Zofran) 4 mg PRN Q8HRS PRN IV NAUSEA/VOMITING; Start 04/18/21 at 10:45; Stop 04/19/21 at 10:44 Sodium Chloride 1,000 ml @ 75 mls/hr [id number] IV ; Start 04/18/21 at 10:45; Stop 04/19/21 at 10:44 Sennosides (Senna) 17.2 mg PRN BID PRN PO CONSTIPATION; Start 04/18/21 at 13:15 Docusate Sodium (Colace) 100 mg PRN DAILY PRN PO HARD STOOLS; Start 04/18/21 at 13:15 Ondansetron HCl (Zofran) 4 mg PRN Q6HRS PRN IVP NAUSEA/VOMITING; Start 04/18/21 at 13:15 Dextrose (Dextrose 50%-Water Syringe) 12.5 gm PRN Q15MIN PRN IV SEE COMMENTS; Start 04/18/21 at 13:15 Acetaminophen (Tylenol) 650 mg PRN Q4HRS PRN PO TEMP OVER 100.4F OR MILD PAIN; Start 04/18/21 at 13:15 Prochlorperazine Edisylate (Compazine) 10 mg PRN Q6HRS PRN IV NAUSEA/VOMITING 2ND CHOICE; Start 04/18/21 at 13:15 Active Scripts Active Zantac (Ranitidine Hcl) 150 Mg Tablet 1 Tab PO BID Haetwy-Mynrmvmi-Uqav 50-325-40 (Butalb/Acetaminophen/Caffeine) 1 Each Tablet 1 Each PO Q6HRS PRN Reported Gabapentin (Gabapentin) 300 Mg Capsule 1 Cap PO TID Clobetasol Propionate 15 Gm Cream..g. 1 Diane TP BID Oxazepam 15 Mg Capsule 15 Mg PO PRN Diazepam 10 Mg Tablet 10 Mg PO DAILY Tizanidine Hcl 4 Mg Tablet 1 Tab PO DAILY Carvedilol (Carvedilol) 3.125 Mg Tablet 1 Tab PO DAILY Lisinopril 20 Mg Tablet 20 Mg PO DAILY Aspir 81 (Aspirin) 81 Mg Tablet. 1 Tab PO DAILY Levothyroxine Sodium 50 Mcg Tablet 50 Mcg PO DAILYAC ROS: Review of Systems Review of System REVIEW OF SYSTEMS: GENERAL: Denies weakness SKIN: No bruising, hair changes or rashes. EYES: No blurred, double or loss of vision. NOSE AND THROAT: No history of nosebleeds, hoarseness or sore throat. HEART: No history of palpitations, chest pain or shortness of breath on exertion. LUNGS: Denies cough, hemoptysis, wheezing or shortness of breath. GASTROINTESTINAL: Denies changes in appetite, nausea, vomiting, diarrhea or constipation. GENITOURINARY: No history of frequency, urgency, hesitancy or nocturia. NEUROLOGIC: Denies history of numbness, tingling, or tremor. PSYCHIATRIC: No history of panic, anxiety or depression. ENDOCRINE: No history of heat or cold intolerance, polyuria or polydipsia. EXTREMITIES: Denies joint pain, pain on walking or stiffness. Physical Exam: Vital Signs: Vital Signs Date Time Temp Pulse Resp B/P (MAP) Pulse Ox O2 Delivery O2 Flow Rate FiO2 04/18/21 10:08 68 172/76 (108) 98 Room Air 04/18/21 07:21 98.6 16 98.6 Physcial Exam: GENERAL: The patient is alert and oriented, in no acute distress. HEENT: PERRLA. Extraocular movements are intact. Sclerae are anicteric. Conjunctivae are clear. ENT: Ears, nose, and throat are clear. NECK: Supple without adenopathy. Thyroid is normal. Carotids free of bruit. LUNGS: Clear to auscultation bilaterally. symmetrical chest rise. HEART: Regular rate and rhythm without murmur, rub or gallop. ABDOMEN: Soft and nontender. Active bowel sounds. No organomegaly. SKIN: Clear, free of rash. NEUROLOGIC: Cranial nerves II through XII intact. Distal, motor, and sensory exam is grossly intact. MUSCULOSKELETAL: Full range of motion of all 4 extremities without pain. Calves are nontender. Labs: Labs: Laboratory Tests Test 04/18/21 07:55 White Blood Count 5.8 x10^3/uL (4.0-11.0) Red Blood Count 3.92 x10^6/uL (3.50-5.40) Hemoglobin 12.8 g/dL (12.0-15.5) Hematocrit 36.2 % (36.0-47.0) Mean Corpuscular Volume 93 fL (79-100) Mean Corpuscular Hemoglobin 33 pg (25-35) Mean Corpuscular Hemoglobin Concent 35 g/dL (31-37) Red Cell Distribution Width 13.4 % (11.5-14.5) Platelet Count 235 x10^3/uL (140-400) Neutrophils (%) (Auto) 80 % (31-73) Lymphocytes (%) (Auto) 12 % (24-48) Monocytes (%) (Auto) 6 % (0-9) Eosinophils (%) (Auto) 0 % (0-3) Basophils (%) (Auto) 1 % (0-3) Neutrophils # (Auto) 4.7 x10^3/uL (1.8-7.7) Lymphocytes # (Auto) 0.7 x10^3/uL (1.0-4.8) Monocytes # (Auto) 0.4 x10^3/uL (0.0-1.1) Eosinophils # (Auto) 0.0 x10^3/uL (0.0-0.7) Basophils # (Auto) 0.1 x10^3/uL (0.0-0.2) Urine Collection Type Unknown Urine Color Yellow Urine Clarity Clear Urine pH 7.5 (<5.0-8.0) Urine Specific Herrick 1.015 (1.000-1.030) Urine Protein Negative mg/dL (NEG-TRACE) Urine Glucose (UA) Negative mg/dL (NEG) Urine Ketones (Stick) Negative mg/dL (NEG) Urine Blood Negative (NEG) Urine Nitrite Negative (NEG) Urine Bilirubin Negative (NEG) Urine Urobilinogen Dipstick 1.0 mg/dL (0.2 mg/dL) Urine Leukocyte Esterase Negative (NEG) Urine RBC Occ /HPF (0-2) Urine WBC Occ /HPF (0-4) Urine Squamous Epithelial Cells Few /LPF Urine Bacteria 0 /HPF (0-FEW) Sodium Level 124 mmol/L (136-145) Potassium Level 3.4 mmol/L (3.5-5.1) Chloride Level 90 mmol/L (98-107) Carbon Dioxide Level 24 mmol/L (21-32) Anion Gap 10 (6-14) Blood Urea Nitrogen 7 mg/dL (7-20) Creatinine 0.6 mg/dL (0.6-1.0) Estimated GFR (Cockcroft-Gault) 98.0 BUN/Creatinine Ratio 12 (6-20) Glucose Level 121 mg/dL (70-99) Calcium Level 8.7 mg/dL (8.5-10.1) Magnesium Level 2.0 mg/dL (1.8-2.4) Total Bilirubin 0.3 mg/dL (0.2-1.0) Aspartate Amino Transf (AST/SGOT) 15 U/L (15-37) Alanine Aminotransferase (ALT/SGPT) 21 U/L (14-59) Alkaline Phosphatase 61 U/L (46-116) Troponin I Quantitative < 0.017 ng/mL (0.000-0.055) UL-Otr-B-Type Natriuretic Peptide 821 pg/mL (0-124) Total Protein 7.5 g/dL (6.4-8.2) Albumin 4.2 g/dL (3.4-5.0) Albumin/Globulin Ratio 1.3 (1.0-1.7) Urine Opiates Screen Neg (NEG) Urine Methadone Screen Neg (NEG) Urine Barbiturates Neg (NEG) Urine Phencyclidine Screen Neg (NEG) Urine Amphetamine/Methamphetamine Neg (NEG) Urine Benzodiazepines Screen Neg (NEG) Urine Cocaine Screen Neg (NEG) Urine Cannabinoids Screen Neg (NEG) Urine Ethyl Alcohol Neg (NEG) Laboratory Tests Test 04/18/21 07:55 White Blood Count 5.8 x10^3/uL (4.0-11.0) Red Blood Count 3.92 x10^6/uL (3.50-5.40) Hemoglobin 12.8 g/dL (12.0-15.5) Hematocrit 36.2 % (36.0-47.0) Mean Corpuscular Volume 93 fL (79-100) Mean Corpuscular Hemoglobin 33 pg (25-35) Mean Corpuscular Hemoglobin Concent 35 g/dL (31-37) Red Cell Distribution Width 13.4 % (11.5-14.5) Platelet Count 235 x10^3/uL (140-400) Neutrophils (%) (Auto) 80 % (31-73) Lymphocytes (%) (Auto) 12 % (24-48) Monocytes (%) (Auto) 6 % (0-9) Eosinophils (%) (Auto) 0 % (0-3) Basophils (%) (Auto) 1 % (0-3) Neutrophils # (Auto) 4.7 x10^3/uL (1.8-7.7) Lymphocytes # (Auto) 0.7 x10^3/uL (1.0-4.8) Monocytes # (Auto) 0.4 x10^3/uL (0.0-1.1) Eosinophils # (Auto) 0.0 x10^3/uL (0.0-0.7) Basophils # (Auto) 0.1 x10^3/uL (0.0-0.2) Urine Collection Type Unknown Urine Color Yellow Urine Clarity Clear Urine pH 7.5 (<5.0-8.0) Urine Specific Herrick 1.015 (1.000-1.030) Urine Protein Negative mg/dL (NEG-TRACE) Urine Glucose (UA) Negative mg/dL (NEG) Urine Ketones (Stick) Negative mg/dL (NEG) Urine Blood Negative (NEG) Urine Nitrite Negative (NEG) Urine Bilirubin Negative (NEG) Urine Urobilinogen Dipstick 1.0 mg/dL (0.2 mg/dL) Urine Leukocyte Esterase Negative (NEG) Urine RBC Occ /HPF (0-2) Urine WBC Occ /HPF (0-4) Urine Squamous Epithelial Cells Few /LPF Urine Bacteria 0 /HPF (0-FEW) Sodium Level 124 mmol/L (136-145) Potassium Level 3.4 mmol/L (3.5-5.1) Chloride Level 90 mmol/L (98-107) Carbon Dioxide Level 24 mmol/L (21-32) Anion Gap 10 (6-14) Blood Urea Nitrogen 7 mg/dL (7-20) Creatinine 0.6 mg/dL (0.6-1.0) Estimated GFR (Cockcroft-Gault) 98.0 BUN/Creatinine Ratio 12 (6-20) Glucose Level 121 mg/dL (70-99) Calcium Level 8.7 mg/dL (8.5-10.1) Magnesium Level 2.0 mg/dL (1.8-2.4) Total Bilirubin 0.3 mg/dL (0.2-1.0) Aspartate Amino Transf (AST/SGOT) 15 U/L (15-37) Alanine Aminotransferase (ALT/SGPT) 21 U/L (14-59) Alkaline Phosphatase 61 U/L (46-116) Troponin I Quantitative < 0.017 ng/mL (0.000-0.055) QL-Arx-W-Type Natriuretic Peptide 821 pg/mL (0-124) Total Protein 7.5 g/dL (6.4-8.2) Albumin 4.2 g/dL (3.4-5.0) Albumin/Globulin Ratio 1.3 (1.0-1.7) Urine Opiates Screen Neg (NEG) Urine Methadone Screen Neg (NEG) Urine Barbiturates Neg (NEG) Urine Phencyclidine Screen Neg (NEG) Urine Amphetamine/Methamphetamine Neg (NEG) Urine Benzodiazepines Screen Neg (NEG) Urine Cocaine Screen Neg (NEG) Urine Cannabinoids Screen Neg (NEG) Urine Ethyl Alcohol Neg (NEG) Images: Images No recent images to review Assessment/Plan Assessment/Plan Acute severe hyponatremia Hypertensive urgency Hx of HTN hypothyroidism anxiety hx of COVID infection admit to hospitalist service for further management pending urine and serum osmolality trend chemistries for the next 24 hours fluid restriction labetalol IV prn for SBP >180 and resume luis antihypertensive medications resume home synthroid Lovenox for DVT prophylaxis FULL code DPOA: Itz Galeano In addition to E/M visit, advanced care planning was done: A total time of 20 minutes was spent from 1000 to 120 face to face in discussion with the patient and family regarding their goals of care, and CODE status Justifications for Admission Other Justification Hyponatremia JELLY SURESH MD Apr 18, 2021 13:24
--- NOTE | 2021-04-18 14:19 | NUR ---
Patient arrived to room 200 via wheelchair from ER at 1419. Patient A&OX4. VSS. The patient, BRANDI BANGURA, 71 y/o, F admitted by JELLY SURESH MD, was given written information regarding hospital policies, unit procedures and contact persons. Valuables were checked and noted. Will continue to monitor.
[2021-04-18 14:20] VITALS: BP 148/65
[2021-04-18] MEDS ORDERED: LISI-517 PO (15:00)
[2021-04-18] MEDS ORDERED: CYCL1DRO OU (15:00)
[2021-04-18] MEDS ORDERED: AMLO-186 PO (15:00)
[2021-04-18] MEDS: IV NORMAL SALINE 1000ML BAG 1,000 ML IV SCH (15:31)
[2021-04-18] MEDS ORDERED: CALCIUM CARBONATE 500 MG TAB.CHEW PO PRN (16:30)
[2021-04-18] MEDS ORDERED: SIMETHICONE 80 MG TAB.CHEW PO PRN (17:15)
--- NOTE | 2021-04-18 17:27 | EKG ---
[facility] [address] [place] [address] Test Date: 2021-04-18 Test Time: 08:02:28 Pat Name: BARNDI BANGURA Department: Room: Gender: F Store Sales Consultant: : [id number] Requested By: PEPITO QUINN Order Number: [id number] Reading MD: Measurements Intervals Stafford Rate: 73 P: 23 WA: 208 QRS: 34 QRSD: 78 T: 48 QT: 376 QTc: 418 Interpretive Statements SINUS RHYTHM QRS(T) CONTOUR ABNORMALITY CONSIDER ANTEROSEPTAL MYOCARDIAL DAMAGE POSSIBLY ABNORMAL ECG RI6.01 No previous ECG available for comparison
[2021-04-18 19:00] VITALS: BP 129/70
[2021-04-18 19:22] VITALS: BP 67/43
[2021-04-18 19:35] LABS: CALCIUM 8.8 mg/dL (8.5-10.1); GFR 54.3; POTASSIUM 3.7 mmol/L (3.5-5.1)
[2021-04-18] MEDS: cycloSPORINE 0.05% OPHTH DROPERETTE. OU SCH (20:42)
[2021-04-18 23:34] VITALS: BP 137/69
--- NOTE | 2021-04-19 06:02 | NUR ---
[employer] down from 0 to now. VS stable and on paper.
[2021-04-19 07:00] VITALS: BP 143/74
[2021-04-19] MEDS ORDERED: LEVOTHYROXINE 50 MCG TABLET PO SCH (07:30)
[2021-04-19 07:36] LABS: BASO % 1 % (0-3); EOS % 0 % (0-3); HEMATOCRIT 36.2 % (36.0-47.0); HEMOGLOBIN 12.5 g/dL (12.0-15.5); LYMPH # 1.1 x10^3/uL (1.0-4.8); LYMPH % 21 % (24-48); MEAN CORPUSCULAR HEMOGLOBIN 33 pg (25-35); MEAN CORPUSCULAR HGB CONC 35 g/dL (31-37); MEAN CORPUSCULAR VOLUME 94 fL (79-100); MONO # 0.6 x10^3/uL (0.0-1.1); MONO % 10 % (0-9); NEUT # 3.8 x10^3/uL (1.8-7.7); NEUT % 68 % (31-73); PLATELET COUNT 236 x10^3/uL (140-400); RED BLOOD COUNT 3.85 x10^6/uL (3.50-5.40); RED CELL DISTRIBUTION WIDTH 13.6 % (11.5-14.5); WHITE BLOOD COUNT 5.6 x10^3/uL (4.0-11.0)
[2021-04-19 07:42] LABS: CALCIUM 8.5 mg/dL (8.5-10.1); CREATININE 0.6 mg/dL (0.6-1.0); MAGNESIUM 2.1 mg/dL (1.8-2.4); PHOSPHORUS 2.7 mg/dL (2.6-4.7); POTASSIUM 3.5 mmol/L (3.5-5.1)
[2021-04-19] MEDS: cycloSPORINE 0.05% OPHTH DROPERETTE. OU SCH (08:03)
[2021-04-19] MEDS: IV NORMAL SALINE 1000ML BAG 1,000 ML IV SCH (08:04)
--- NOTE | 2021-04-19 08:47 | PDOC ---
[facility] PROGRESS NOTE Date of Service DOS: DATE: 04/19/21 TIME: 08:41 Chief Complaint Chief Complaint hyponatremia anxiety hypertension hypothyroidism History of Present Illness History of Present Illness HPI: 71 yo F with PMHx of COVID infection in 06/2020, hypothyroidism, anxiety who presents with weakness and hot flash sensation Patient take amlodipine and CBD oil for anxiety. Patient says she had used this substance in the past without any problem. Patient said her blood pressure was elevated at home, she took cl onidine for it, continue to have hot flash sensation and tingling sensation all over her body so she came in for evaluation. Patient denies any chest pain, no cough, no fever. Patient denies any headache, no blurred vision, no trouble speaking. Patient denies any focal weakness or numbness anywhere. Of note, patient states she has been excessively drinking more water because of her symptoms. In the last 3 weeks she has drank about 6-7 12oz glasses per day. 04/19/21 Patient seen and examined at bedside. SARA RN. Chart reviewed. Patient admits to consumption of "a lot of water" and says she is on a low salt diet. Vitals/I&O Vitals/I&O: Vital Signs Date Time Temp Pulse Resp B/P (MAP) Pulse Ox O2 Delivery O2 Flow Rate FiO2 04/19/21 07:00 97.8 73 16 143/74 (97) 99 Room Air 97.8 I & O 04/18/21 04/18/21 04/19/21 15:00 23:00 07:00 Intake Total 1000 ml 60 ml Output Total 0 ml Balance 1000 ml 60 ml 0 ml Labs Labs: Laboratory Tests Test 04/18/21 19:00 04/19/21 07:05 Sodium Level 131 mmol/L (136-145) 132 mmol/L (136-145) Potassium Level 3.7 mmol/L (3.5-5.1) 3.5 mmol/L (3.5-5.1) Chloride Level 97 mmol/L (98-107) 99 mmol/L (98-107) Carbon Dioxide Level 24 mmol/L (21-32) 26 mmol/L (21-32) Anion Gap 10 (6-14) 7 (6-14) Blood Urea Nitrogen 6 mg/dL (7-20) 5 mg/dL (7-20) Creatinine 1.0 mg/dL (0.6-1.0) 0.6 mg/dL (0.6-1.0) Estimated GFR (Cockcroft-Gault) 54.3 98.0 Glucose Level 173 mg/dL (70-99) 93 mg/dL (70-99) Calcium Level 8.8 mg/dL (8.5-10.1) 8.5 mg/dL (8.5-10.1) White Blood Count 5.6 x10^3/uL (4.0-11.0) Red Blood Count 3.85 x10^6/uL (3.50-5.40) Hemoglobin 12.5 g/dL (12.0-15.5) Hematocrit 36.2 % (36.0-47.0) Mean Corpuscular Volume 94 fL (79-100) Mean Corpuscular Hemoglobin 33 pg (25-35) Mean Corpuscular Hemoglobin Concent 35 g/dL (31-37) Red Cell Distribution Width 13.6 % (11.5-14.5) Platelet Count 236 x10^3/uL (140-400) Neutrophils (%) (Auto) 68 % (31-73) Lymphocytes (%) (Auto) 21 % (24-48) Monocytes (%) (Auto) 10 % (0-9) Eosinophils (%) (Auto) 0 % (0-3) Basophils (%) (Auto) 1 % (0-3) Neutrophils # (Auto) 3.8 x10^3/uL (1.8-7.7) Lymphocytes # (Auto) 1.1 x10^3/uL (1.0-4.8) Monocytes # (Auto) 0.6 x10^3/uL (0.0-1.1) Eosinophils # (Auto) 0.0 x10^3/uL (0.0-0.7) Basophils # (Auto) 0.0 x10^3/uL (0.0-0.2) Phosphorus Level 2.7 mg/dL (2.6-4.7) Magnesium Level 2.1 mg/dL (1.8-2.4) Review of Systems Review of Systems: Denies weakness. Denies pain. Assessment and Plan Assessmemt and Plan Problems Medical Problems: (1) Hypertension Status: Acute (2) Hyponatremia Status: Acute Assessment: hyponatremia anxiety hypertension hypothyroidism Plan: cardiac monitoring monitor labs home medication DVT prophylaxis probable discharge later today full code Comment Review of Relevant I have reviewed the following items adriana (where applicable) has been applied. Medications: Current Medications Medications (Trade) Dose Ordered Sig/Corbin Route PRN Reason Start Time Stop Time Status Last Admin Dose Admin Sodium Chloride 1,000 ml @ 1,000 mls/hr 1X ONCE IV 04/18/21 09:15 04/18/21 10:14 DC 04/18/21 09:37 Sodium Chloride 1,000 ml @ 75 mls/hr [id number] IV 04/18/21 10:45 04/19/21 10:44 04/19/21 08:04 Amlodipine Besylate (Norvasc) 5 mg QHS PO 04/18/21 21:00 04/18/21 20:41 Cyclosporine (Restasis) 1 drop BID OU 04/18/21 21:00 04/19/21 08:03 Levothyroxine Sodium (Synthroid) 50 mcg DAILYAC PO 04/19/21 07:30 04/19/21 08:02 Simethicone (Gas-X) 80 mg PRN AFTMEALHC PRN PO GAS / BLOATING 04/18/21 17:15 04/18/21 17:31 Justifications for Admission Other Justification Hyponatremia CHANTAL PLASCENCIA III DO Apr 19, 2021 08:47
--- NOTE | 2021-04-19 10:27 | NUR ---
SS following for discharge planning. SS reviewed pt chart and discussed with pt RN. Pt is from home and is currently on room air. Discharge plan is to home. Discharge order on the chart for home with self care.
[2021-04-19 11:00] VITALS: BP 129/68
[2021-04-19 12:14] LABS: CALCIUM 8.7 mg/dL (8.5-10.1); CREATININE 0.6 mg/dL (0.6-1.0); POTASSIUM 4.2 mmol/L (3.5-5.1)
--- NOTE | 2021-04-19 13:43 | NUR ---
Discharge Note: BRANDI BANGURA [address] [place] [address] Discharge instructions and discharge home medications reviewed with Patient and a copy given. All questions have been answered and understanding verbalized. The following instructions and handouts were given: discharge instructions, follow up, med list, hyponatremia education, HTN education. Discontinued lines and drains: Peripheral IV intact. Patient discharged to Home or Self Care with Self via wheelchair at 1343.
--- NOTE | 2021-04-19 16:38 | DS ---
DATE OF DISCHARGE: 04/19/2021 ADMISSION DIAGNOSIS: Hyponatremia. 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 HOSPITAL COURSE: The patient is a pleasant, elderly female who presented with hyponatremia. She admits to drinking excessive amounts of water. Her sodium level was 124. We admitted her, gave her IV normal saline. This morning, her sodium level is up to 132. She feels better and wants to go home. I saw and examined her. We are going to discharge with close outpatient followup. DISPOSITION: Home. ACTIVITY: As tolerated. DIET: Low sodium. MEDICATIONS: Please see the MRAD. Amlodipine 5 a day, Restasis eye drops, Synthroid 50 mcg daily and lisinopril 5 a day. Total time [address]: Joyce TID: [id number]
--- NOTE | 2021-05-03 11:01 | NUR ---
Late Entry - NS infusion started on 04/18/21 at 1531 stopped on 04/19/21 at 0451. NS infusion started on 04/19/21 at 0804 stopped on 04/19/21 at 1157.
== END 2021-04-19 13:45 | disposition home or self-care (01) ==
LOC: ER 03:39 → ED HOLD 10:13 → 2 NORTH 14:22
PROVIDERS: ADMIT Internal Medicine; ATTEND Internal Medicine
DX: E87.1 Hypo-osmolality and hyponatremia (principal); E03.9 Hypothyroidism, unspecified; F41.9 Anxiety disorder, unspecified; Z20.822 Contact with and (suspected) exposure to COVID-19; I10 Essential (primary) hypertension; I16.0 Hypertensive urgency; Z96.649 Presence of unspecified artificial hip joint; Z90.710 Acquired absence of both cervix and uterus; Z79.899 Other long term (current) drug therapy
CPT/HCPCS: 36415; 80048; 80053; 80307; 81001; 83735; 83880; 83930; 83935; 84100; 84484; 85025; 93005; 96361; 96374; 96375; 99284; G0378; J1200; J2930; J3490; J7030; G0379

== ENCOUNTER 2021-04-21 18:38 | Emergency (ER) | payer MEDICARE ==
[~2021-04-21] VITALS: Ht 160 cm; Wt 68.0 kg
[~2021-04-21 18:38] MED LIST changes: +AMLO-186 PO; +CYCL1DRO OU; +LISI-517 PO
--- NOTE | 2021-04-22 01:39 | PHYS DOC ---
Past Medical History Past Medical History: Anxiety, Hypertension, Hypothyroid Additional Past Medical Histor: COVID 07/12, HIATIAL & UMBILICAL HERNIA Past Surgical History: Hip Replacement, Hysterectomy, Other Additional Past Surgical Histo: CARPAL TUNNEL,VEIN STRIPPING Smoking Status: Never Smoker Alcohol Use: Rarely Drug Use: None General Adult EDM: Chief Complaint: LOWER EXT PAIN HPI: HPI: Patient is a 71 year old female with recent history of an admission for hyponatremia earlier this week who presents with burning sensation in bilateral legs. It goes from the knee down. Is symmetric bilaterally. No weakness or numbness. She has no history of similar sensation. She denies any skin changes/redness, swelling in either leg. She has had recent history of headac hes and dizziness. Had a CT of her head at a recent visit that was reportedly normal. Her admission for hyponatremia she was discharged the following day. Was hyponatremic to 124, corrected to 132 after some IV normal saline. This is after he admitted to drinking large amounts of free water. Review of Systems: Review of Systems: Constitutional: Denies fever or chills. [] Eyes: Denies change in visual acuity. [] HENT: Denies nasal congestion or sore throat. [] Respiratory: Denies cough or shortness of breath. [] Cardiovascular: Denies chest pain or edema. [] GI: Denies abdominal pain, nausea, vomiting, bloody stools or diarrhea. [] : Denies dysuria. [] Musculoskeletal: Lower extremity burning sensation. Denies back pain or joint pain. [] Integument: Denies rash. [] Neurologic: Denies headache, focal weakness or sensory changes. [] Endocrine: Denies polyuria or polydipsia. [] Lymphatic: Denies swollen glands. [] Psychiatric: Denies depression or anxiety. [] Heart Score: C/O Chest Pain: No Risk Factors: Risk Factors: DM, Current or recent (<one month) smoker, HTN, HLP, family history of CAD, obesity. Risk Scores: Score 0 - 3: 2.5% MACE over next 6 weeks - Discharge Home Score 4 - 6: 20.3% MACE over next 6 weeks - Admit for Clinical Observation Score 7 - 10: 72.7% MACE over next 6 weeks - Early Invasive Strategies Family History: Family History: No pertinent family history Allergies: Allergies: Allergies Coded Allergies Type Severity Reaction Last Updated Verified hydrochlorothiazide Allergy Intermediate 06/23/14 No Physical Exam: PE: Constitutional: Well developed, well nourished, no acute distress, non-toxic appearance. [] HENT: Normocephalic, atraumatic, bilateral external ears normal, oropharynx moist, no oral exudates, nose normal. [] Eyes: PERRLA, EOMI, conjunctiva normal, no discharge. [] Neck: Normal range of motion, no tenderness, supple, no stridor. [] Cardiovascular:Heart rate regular rhythm, no murmur [] Lungs & Thorax: Bilateral breath sounds clear to auscultation [] Abdomen: Bowel sounds normal, soft, no tenderness, no masses, no pulsatile masses. [] Skin: Warm, dry, no erythema, no rash. [] Back: No tenderness, no CVA tenderness. [] Extremities: Bilateral lower extremities are warm, well perfused. Distal pulses are intact. No overlying erythema or edema. . [] Neurologic: Alert and oriented X 3, normal motor function, normal sensory function, no focal deficits noted. [] Psychologic: Affect normal, judgement normal, mood normal. [] Current Patient Data: Vital Signs: Vital Signs Date Time Temp Pulse Resp B/P (MAP) Pulse Ox O2 Delivery O2 Flow Rate FiO2 04/21/ 22:23 98.5 72 20 169/94 (88) 98 Room Air 98.5 EKG: EKG: [] Radiology/Procedures: Radiology/Procedures: [] Course & Med Decision Making: Course & Med Decision Making Pertinent Labs and Imaging studies reviewed. (See chart for details) Patient is a 71-year-old female with history of hypothyroidism and hypertension who presents lower extremity burning below the knees. Is symmetric bilaterally. She has no evidence of edema or overlying skin changes to suggest cellulitis or DVT. She has good distal pulses, no evidence of peripheral arterial disease. Do not feel that she requires any imaging of her lower extremities. No trauma. She has recently been admitted for hyponatremia, will screen for electrolyte normalities with a CMP, and TSH. Check a CBC as well. She is otherwise well. If these labs are unremarkable feel she can likely be discharged with PCP follow-up. 0138 Sodium 134. Rest of CMP and CBC are reassuring. TSH is very mildly elevated. Feel this can be safely followed up as an outpatient. Patient will be discharged from the ED. 0327 Rebecca Disclaimer: Rebecca Disclaimer: This electronic medical record was generated, in whole or in part, using a voice recognition dictation system. Departure Departure Impression: Primary Impression: Elevated TSH Disposition: HOME / SELF CARE / HOMELESS Condition: STABLE Referrals: MANUEL LEONARD MD (PCP) Additional Instructions: Your TSH was very mildly elevated. This is a sign that they may need to increase your thyroid medication in the future. Please follow-up with your primary care doctor to discuss this. Your sodium was 134 today, which is stable from earlier this week. The rest of your labs were reassuring. If you develop new or worsening symptoms he can always return to the emergency department for reevaluation. KLEBER PERALTA MD Apr 22, 2021 01:39
[2021-04-22 01:43] LABS: BASO # 0.2 x10^3/uL (0.0-0.2); BASO % 3 % (0-3); EOS # 0.2 x10^3/uL (0.0-0.7); EOS % 4 % (0-3); HEMATOCRIT 39.1 % (36.0-47.0); HEMOGLOBIN 13.7 g/dL (12.0-15.5); LYMPH # 1.6 x10^3/uL (1.0-4.8); LYMPH % 32 % (24-48); MEAN CORPUSCULAR HEMOGLOBIN 33 pg (25-35); MEAN CORPUSCULAR HGB CONC 35 g/dL (31-37); MEAN CORPUSCULAR VOLUME 93 fL (79-100); MONO # 0.6 x10^3/uL (0.0-1.1); MONO % 12 % (0-9); NEUT # 2.4 x10^3/uL (1.8-7.7); NEUT % 49 % (31-73); PLATELET COUNT 243 x10^3/uL (140-400); RED CELL DISTRIBUTION WIDTH 13.7 % (11.5-14.5); WHITE BLOOD COUNT 4.9 x10^3/uL (4.0-11.0)
[2021-04-22 01:45] LABS: BILIRUBIN,URINE NEGATIVE (NEG); CLARITY,URINE CLEAR; COLOR,URINE YELLOW; NITRITE,URINE NEGATIVE (NEG); PH,URINE 7.5 (<5.0-8.0); PROTEIN,URINE NEGATIVE (NEG-TRACE); UROBILINOGEN,URINE 0.2 mg/dL (0.2 mg/dL)
[2021-04-22 02:04] LABS: BACTERIA,URINE 0 /HPF (0-FEW)
[2021-04-22 02:15] LABS: CREATININE 0.7 mg/dL (0.6-1.0); POTASSIUM 3.8 mmol/L (3.5-5.1)
[2021-04-22 02:21] LABS: ALBUMIN/GLOBULIN RATIO 1.3 (1.0-1.7); TOTAL BILIRUBIN 0.3 mg/dL (0.2-1.0)
[2021-04-22 03:22] VITALS: BP 171/74
== END 2021-04-22 03:30 | disposition home or self-care (01) ==
LOC: ER 18:38
DX: R94.6 Abnormal results of thyroid function studies (principal); R51.9 Headache, unspecified; R42 Dizziness and giddiness; I10 Essential (primary) hypertension; E03.9 Hypothyroidism, unspecified; Z88.8 Allergy status to other drugs, medicaments and biological substances
CPT/HCPCS: 36415; 80053; 81001; 84443; 85025; 99285-25